=== PATIENT | male | born 1965 | race Caucasian/White ===

== ENCOUNTER 2018-11-22 07:30 | Day surgery (SDC) | payer OTHER ==
[2018-10-22 10:51] VITALS: BMI 33.6
[2018-11-22] MEDS ORDERED: ONDANSETRON 4 MG/2 ML VIAL IVPUSH PRN (09:54)
[2018-11-22] MEDS ORDERED: oxyCODONE HCL 5 MG TABLET PO PRN (09:54)
[2018-11-22] MEDS ORDERED: PROMETHAZINE HCL 25 MG/1 ML VIAL IVPB PRN (09:54)
[2018-11-22] MEDS ORDERED: MIDAZOLAM HCL 2 MG/2 ML SINGLE DOSE VIAL ONE ×2 (09:57)
[2018-11-22] MEDS ORDERED: LACTATED RINGERS SOLUTION 1,000 ML IV SCH (10:00)
[2018-11-22] MEDS ORDERED: PROPOFOL 20 ML ONE (10:02)
--- NOTE | 2018-11-22 10:57 | OP ---
Operative Note - Note: Operative Date: 11/22/18 Pre-Operative Diagnosis: urethral stricture Operation: cystoscopy and laser urethrotomy Findings: high grade bulbourethral stricture Post-Operative Diagnosis: Same as Pre-op Surgeon: Rogelio Saldana Anesthesia: General Drains & Tubes with Location: 20 fr silastic catheter
[2018-11-22 12:37] VITALS: TEMP 98.3
--- NOTE | 2018-11-22 13:08 | OP ---
DATE OF OPERATION: 11/22/2018 PREOPERATIVE DIAGNOSIS: Bulbous urethral stricture. POSTOPERATIVE DIAGNOSIS: Bulbous urethral stricture. PROCEDURE: Cystoscopy, laser urethrotomy, and urethral dilation. ATTENDING SURGEON: Royce Saldana MD ANESTHESIA: General. OPERATION: Went as follows, the patient was brought into the operating room and placed in a supine position on the operating room table. The patient was given anesthesia and preoperative antibiotics. He was then placed in the dorsal lithotomy position and prepped and draped in the usual sterile manner. Cystoscopy was performed in a pinpoint opening with a bulbous urethra was noted. With mild difficulty, a wire was placed through this opening into the bladder. At this point, a holmium laser was utilized, and under direct cystoscopic visualization, incision was made at the 12 o'clock position. Care was taken to avoid incision into muscle tissue. When adequate relaxation had been obtained, the urethra was then dilated to 20-Peruvian. Dilators were placed over the wire in order to avoid a false passage of further injury into this area. Once this was accomplished, cystoscopy was then performed, and the opened bulbous urethra with maintenance of the muscle tissue within the external urinary sphincter was noted. The bladder was examined. There was no evidence of stones or neoplasm. One to 2+ bladder trabeculation was noted. A 2 to 3+ obstructive prostate was noted. At this time, the patient was left with a silastic catheter to straight drainage measuring 20-Peruvian in diameter. Patient will maintain this catheter for 1 week. ROYCE KRISHNA M.D. /[id number]
[2018-11-22 13:28] VITALS: BP 168/81; PULSE 81
== END 2018-11-22 13:42 | disposition home or self-care (01) ==
LOC: JASU-SURG 07:30
PROVIDERS: ATTEND Urology
PROC: 0T7D8ZZ Dilation of Urethra, Via Natural or Artificial Opening Endoscopic (ICD-10-PCS; principal; 2018-11-22 09:00)
DX: N35.812 Other bulbous urethral stricture, male (principal)
CPT/HCPCS: 82962; 94760

== ENCOUNTER 2020-09-03 04:35 | Day surgery (SDC) | payer OTHER ==
--- OUTSIDE RECORDS SUMMARY | 2020-08-24 16:00 | XMS ---
:1965 Author Organization [facility] Support Name Relationship Address Phone ALYCIA BARBOSA [address] [place] [address] Re-disclosure Warning The records that you are about to access may contain information from federally- assisted alcohol or drug abuse programs. If such information is present, then the following federally mandated warning applies: This information has been disclosed to you from records protected by federal confidentiality rules (42 CFR part 2). The federal rules prohibit you from making any further disclosure of this information unless further disclosure is expressly permitted by the written consent of the person to whom it pertains or as otherwise permitted by 42 CFR part 2. A general authorization for the release of medical or other information is NOT sufficient for this purpose. The Federal rules restrict any use of the information to criminally investigate or prosecute any alcohol or drug abuse patient.The records that you are about to access may contain highly sensitive health information, the redisclosure of which is protected by Article 27-F of the [facility] Public Health law. If you continue you may haveaccess to information: Regarding HIV / AIDS; Provided by facilities licensed or operated by the [facility] Office of Mental Health; or Provided by the [facility] Office for People With Developmental Disabilities. If such information is present, then the following [facility] mandated warning applies: This information has been disclosed to you from confidential records which are protected by state law. State law prohibits you from making any further disclosure of this information without the specific written consent of the person to whom it pertains, or as otherwise permitted by law. Any unauthorized further disclosure in violation of state law may result in a fine or longterm sentence or both. A general authorization for the release of medical or other information is NOT sufficient authorization for further disclosure. Results ID Date Data Source [id number] 04/07/2020 12:00:00 AM EDT [facility] Name Value Range Interpretation Code Description Data Minerva rce(s) Supporting Document(s ) nCoV [facility] RNA XXX SANTOS+probe- Imp This lab was ordered by [facility] and reported by [employer] ID Date Data Source [id number] 03/31/2020 12:00:00 AM EDT [facility] Name Value Range Interpretation Code Description Data Minerva rce(s) Supporting Document(s ) nCoV [facility] RNA XXX SANTSO+probe- Imp This lab was ordered by [facility] and reported by [employer] ID Date Data Source [id number] 03/18/2020 12:00:00 AM EDT [facility] Name Value Range Interpretation Code Description Data Minerva rce(s) Supporting Document(s ) nCoV [facility] RNA XXX SANTOS+probe- Imp This lab was ordered by [facility] [employer] and reported by [employer] ID Date Data Source [id number] 03/11/2020 12:00:00 AM EDT [facility] Name Value Range Interpretation Code Description Data Minerva rce(s) Supporting Document(s ) nCoV [facility] RNA XXX SANTOS+probe- Imp This lab was ordered by [facility] [employer] and reported by [employer] ID Date Data Source [id number] 03/05/2020 12:00:00 AM EDT [facility] Name Value Range Interpretation Code Description Data Minerva rce(s) Supporting Document(s ) nCoV [facility] RNA XXX SANTOS+probe- Imp This lab was ordered by [facility] and reported by [employer] Procedure
[2020-08-31 16:08] VITALS: BMI 32.5
--- OUTSIDE RECORDS SUMMARY | 2020-09-03 04:39 | XMS ---
:1965 [facility] Support Name Relationship Address Phone JUHI, LIBERTY LINES Unavailable [address] [phone] [place] [address] JUHI Unavailable [address] [place] [address] MIRTA LAZAR BROTHER [address] [place] [address] ALYCIA BARBOSA [address] [phone] [place] [address] Re-disclosure Warning The records that you are [...] is protected by Article 27-F of the [facility] Public Health law. If you continue you may haveaccess to information: Regarding HIV / AIDS; Provided by facilities licensed or operated by the [facility] Office of Mental Health; or Provided by the [facility] Office for People With Developmental Disabilities. If such information is present, then the following [facility] mandated warning applies: This information has been [...] law may result in a fine or senior living sentence or both. A general authorization for the release of medical or other information is NOT sufficient authorization for further disclosure. Insurance Providers Payer name Policy type Policy ID Covered Covered constitution party's Policy P blayne / Coverage constitution party ID relationship to Lua Inf ormation type lua [employer] [id number] SP [id number] 01 HEALTHCARE HMO 1 Results ID Date Data Source [id number] 08/29/2020 04:10:00 PM EDT [facility] Name Value Range Interpretation Description Data Sup porting Code Source(s) Document(s ) SARS [facility] coronavirus 2 RNA This lab was ordered by [facility] and reported by [facility]. ID Date Data Source [id number] 04/07/2020 12:00:00 AM EDT [facility] Name Value Range Interpretation Code Description Data Minerva rce(s) Supporting Document(s ) nCoV [facility] RNA XXX SANTOS+probe- Imp This lab was ordered by [facility] [employer] and reported by [employer] ID Date Data Source [id number] 03/31/2020 12:00:00 AM EDT [facility] Name Value Range Interpretation Code Description Data Minerva rce(s) Supporting Document(s ) nCoV [facility] RNA XXX SANTOS+probe- Imp This lab was ordered by [facility] [employer] and reported by [employer] ID Date Data Source [id number] 03/18/2020 12:00:00 AM EDT [facility] Name Value Range Interpretation Code Description Data Minerva rce(s) Supporting Document(s ) nCoV [facility] RNA XXX SANTOS+probe- Imp This lab was ordered by [facility] [employer] and reported by [employer] ID Date Data Source [id number] 03/11/2020 12:00:00 AM EDT [facility] Name Value Range Interpretation Code Description Data Minerva rce(s) Supporting Document(s ) nCoV [facility] RNA XXX SANTOS+probe- Imp This lab was ordered by [facility] [employer] and reported by [employer] ID Date Data Source [id number] 03/05/2020 12:00:00 AM EDT [facility] Name Value Range Interpretation Code Description Data [facility]) Supporting Document(s ) 2019-nCoV [facility] RNA XXX SANTOS+probe- Imp This lab was ordered by [facility] and reported by [employer] Procedure
[2020-09-03 10:39] VITALS: TEMP 98
[2020-09-03] MEDS ORDERED: MIDAZOLAM HCL 2 MG/2 ML SINGLE DOSE VIAL ONE ×2 (13:53→14:41)
[2020-09-03 16:05] VITALS: BP 167/78; PULSE 66
--- NOTE | 2020-09-03 16:06 | OP ---
Operative Note - Note: Operative Date: 09/03/20 Pre-Operative Diagnosis: Right renal stone Operation: Right ESWL Findings: 6 mm mid pole Right renal stone Post-Operative Diagnosis: Same as Pre-op Surgeon: Rogelio Saldana Anesthesia: Regional Operative Report Dictated: Yes
--- NOTE | 2020-09-03 19:25 | OP ---
DATE OF OPERATION: 09/03/2020 PREOPERATIVE DIAGNOSIS: Right renal stone. POSTOPERATIVE DIAGNOSIS: Right renal stone. PROCEDURE: Right extracorporeal shockwave lithotripsy. ATTENDING: Royce Saldana M.D. ANESTHESIA: Fractional. DESCRIPTION OF PROCEDURE: Patient was brought in the operating room, placed in a supine position on the operating room table. Ultrasonography and fluoroscopy were performed. A 6-mm right mid pole stone was identified. At this point, anesthesia and preoperative antibiotics were then administered. Shockwave lithotripsy was then started. 2500 impulses at 17 joules of power were administered to the right mid pole stone with excellent fragmentation noted under realtime ultrasonography and fluoroscopy. No complications were noted. The patient tolerated the procedure very well. ROYCE KRISHNA M.D. /[id number]
== END 2020-09-03 16:15 | disposition home or self-care (01) ==
LOC: JASU-SURG 04:35
PROVIDERS: ATTEND Urology
PROC: 0TF3XZZ Fragmentation in Right Kidney Pelvis, External Approach (ICD-10-PCS; principal; 2020-09-03 13:30)
DX: N20.0 Calculus of kidney (principal); I10 Essential (primary) hypertension; E11.9 Type 2 diabetes mellitus without complications; Z79.4 Long term (current) use of insulin
CPT/HCPCS: 82962

== ENCOUNTER 2021-08-19 19:18 | Emergency (ER) | payer OTHER ==
[2021-08-19 19:42] VITALS: BP 135/66; PULSE 76; TEMP 98.2; BMI 33.2
[2021-08-19] MEDS ORDERED: KETOROLAC TROMETHAMINE 15 MG/ML VIAL IM ONE (21:41)
[2021-08-19] MEDS ORDERED: LIDOCAINE 5% TOPICAL PATCH TP ONE (21:41)
[2021-08-19] MEDS ORDERED: LIDOCAINE PATCH REMOVAL MC SCH (22:00)
[2021-08-19] MEDS ORDERED: KETOROLAC TROMETHAMINE 15 MG/ML VIAL ONE (22:15)
[2021-08-19] MEDS ORDERED: LIDOCAINE 5% TOPICAL PATCH ONE (22:15)
== END 2021-08-19 22:30 | disposition home or self-care (01) ==
LOC: JER 19:18 → JERFT 19:18
PROC: 3E0233Z Introduction of Anti-inflammatory into Muscle, Percutaneous Approach (ICD-10-PCS; principal; 2021-08-19)
DX: M54.50 Low back pain, unspecified (principal)
CPT/HCPCS: 99284-25

== ENCOUNTER 2022-01-29 10:42 | Emergency (ER) | payer OTHER ==
[2022-01-29 10:48] VITALS: BP 197/77; PULSE 89; TEMP 98.3; BMI 32.6
[2022-01-29] MEDS ORDERED: DALBAVANCIN HCL 1,500 MG in DEXTROSE 5%-WATER - 500 ML IVPB ONE (11:54)
== END 2022-01-29 14:26 | disposition home or self-care (01) ==
LOC: JER 10:42 → JERFT 10:42
DX: L03.031 Cellulitis of right toe (principal)
CPT/HCPCS: 99284-25; G0463-25; J0875

== ENCOUNTER 2022-02-06 14:21 | Emergency (ER) | payer OTHER ==
[2022-02-06 14:26] VITALS: BMI 33.2
[2022-02-06] MEDS ORDERED: DALBAVANCIN HCL 1,500 MG in DEXTROSE 5%-WATER - 500 ML IVPB ONE (15:39)
[2022-02-06] MEDS ORDERED: DALBAVANCIN HCL 500 MG VIAL (RESTRICTED TO ID ONLY) IVPB ONE (15:52)
[2022-02-06 16:29] LABS: BASO % 0.9 % (0-2.0); EOS % 0.6 % (0-4.5); HEMATOCRIT 38.6 % (35.4-49); HEMOGLOBIN 13.6 GM/dL (11.7-16.9); MCH 29.8 pg (25.7-33.7); MCHC 35.2 g/dl (32.0-35.9); MEAN CELL VOLUME 84.7 fl (80-96); MEAN PLT VOLUME 7.4 fl (7.5-11.1); MONO % 6.7 % (3.8-10.2); NEUT % 64.8 % (42.8-82.8); PLATELET COUNT 257 10^3/uL (134-434); RBC 4.56 M/mm3 (4.00-5.60); WHITE BLOOD COUNT 7.1 K/mm3 (4.0-10.0)
[2022-02-06 16:45] LABS: SODIUM 135 mmol/L (136-145)
[2022-02-06 16:47] LABS: BLOOD UREA NITROGEN 24.2 mg/dL (7-18); CALCIUM 9.5 mg/dL (8.5-10.1); CO2 26 mmol/L (21-32); GLUCOSE,RANDOM 318 mg/dL (74-106)
[2022-02-06 16:50] LABS: CREATININE 1.2 mg/dL (0.55-1.3); SGOT/AST 52 U/L (15-37); SGPT/ALT 89 U/L (13-61)
[2022-02-06 16:52] LABS: BILIRUBIN,TOTAL 0.4 mg/dL (0.2-1); TOT PROT 7.2 g/dl (6.4-8.2)
[2022-02-06 16:53] LABS: ALK PHOS 125 U/L (45-117)
[2022-02-06 17:11] LABS: ANION GAP 8 MMOL/L (8-16); CHLORIDE 101 mmol/L (98-107)
[2022-02-06 18:08] LABS: ERYTHROCYTE SEDIMENTATION RATE 13 mm/hr (0-20)
[2022-02-06 19:02] VITALS: BP 140/75; PULSE 86; TEMP 99
== END 2022-02-06 19:02 | disposition home or self-care (01) ==
LOC: JER 14:21
DX: L03.031 Cellulitis of right toe (principal)
CPT/HCPCS: 36415; 80053; 85025; 85651; 86140; 99284-25; G0463-25; J0875

== ENCOUNTER 2022-02-27 04:10 | Day surgery (SDC) | payer OTHER ==
[2022-02-24 15:10] VITALS: BMI 33.2
[2022-02-27] MEDS ORDERED: LIDOCAINE HCL 1%, 10 MG/ML (50 mL VIAL) SQ ONE (07:43)
[2022-02-27 08:20] VITALS: BP 147/67; PULSE 80; TEMP 98.8
== END 2022-02-27 09:35 | disposition home or self-care (01) ==
LOC: JASU-SURG 04:10
PROVIDERS: ATTEND Podiatrist Foot Surgery
PROC: 0QBQ3ZX Excision of Right Toe Phalanx, Percutaneous Approach, Diagnostic (ICD-10-PCS; principal; 2022-02-27 07:30)
DX: M86.9 Osteomyelitis, unspecified (principal)
CPT/HCPCS: 36415; 73630-TC-RT-FY; 82962; 86140; 87070; 87075; 87205

== ENCOUNTER 2022-10-06 05:28 | Day surgery (SDC) | payer OTHER ==
[2022-10-03 16:10] VITALS: BMI 32.5
[2022-10-06 09:37] VITALS: TEMP 98.8
[2022-10-06 10:15] VITALS: BP 158/51; PULSE 76; RESP 21
== END 2022-10-06 10:41 | disposition home or self-care (01) ==
LOC: JASU-ENDO 05:28
PROVIDERS: ATTEND Internal Medicine Gastroenterology
PROC: 0DBL8ZX Excision of Transverse Colon, Via Natural or Artificial Opening Endoscopic, Diagnostic (ICD-10-PCS; 2022-10-06)
PROC: 0DBP8ZX Excision of Rectum, Via Natural or Artificial Opening Endoscopic, Diagnostic (ICD-10-PCS; principal; 2022-10-06 09:00)
DX: Z12.11 Encounter for screening for malignant neoplasm of colon (principal); D12.3 Benign neoplasm of transverse colon; K62.1 Rectal polyp; K64.8 Other hemorrhoids; Z83.71 Family history of colonic polyps
CPT/HCPCS: 82962; 88305-TC

== ENCOUNTER 2023-01-19 04:17 | Day surgery (SDC) | payer OTHER ==
[2023-01-14 16:49] VITALS: BMI 32.5
[2023-01-19 12:51] VITALS: RESP 18
[2023-01-19] MEDS ORDERED: MIDAZOLAM HCL 2 MG/2 ML SINGLE DOSE VIAL ONE (16:37)
[2023-01-19] MEDS ORDERED: LABETALOL HCL 20 MG/4 ML VIAL ONE (16:56)
[2023-01-19 18:24] VITALS: BP 151/67; PULSE 69; TEMP 98
== END 2023-01-19 18:15 | disposition home or self-care (01) ==
LOC: JASU-SURG 04:17
PROVIDERS: ATTEND Urology
PROC: 0TF3XZZ Fragmentation in Right Kidney Pelvis, External Approach (ICD-10-PCS; principal; 2023-01-19 14:00)
DX: N20.0 Calculus of kidney (principal)
CPT/HCPCS: 82962

== ENCOUNTER 2023-11-23 04:31 | Day surgery (SDC) | payer OTHER ==
[2023-11-18 16:37] VITALS: BMI 32.5
[2023-11-23] MEDS ORDERED: MIDAZOLAM HCL 2 MG/2 ML SINGLE DOSE VIAL ONE (13:22)
[2023-11-23 16:16] VITALS: RESP 18
[2023-11-23 16:20] VITALS: BP 164/58; PULSE 61; TEMP 97.9
== END 2023-11-23 15:07 | disposition home or self-care (01) ==
LOC: JASU-SURG 04:31
PROVIDERS: ATTEND Urology
PROC: 0TF4XZZ Fragmentation in Left Kidney Pelvis, External Approach (ICD-10-PCS; principal; 2023-11-23 13:00)
DX: N20.0 Calculus of kidney (principal)
CPT/HCPCS: 82962

== ENCOUNTER 2024-06-16 18:45 | Inpatient (IN) | payer OTHER ==
[2024-06-16 21:51] LABS: BASO % 1.2 % (0-2.0); EOS % 1.7 % (0-4.5); HEMATOCRIT 33.7 % (35.4-49); HEMOGLOBIN 11.5 GM/dL (11.7-16.9); LYMPH % 26.3 % (8-40); MCH 29.7 pg (25.7-33.7); MCHC 34.1 g/dl (32.0-35.9); MEAN CELL VOLUME 87.1 fl (80-96); MEAN PLT VOLUME 6.6 fl (7.5-11.1); MONO % 7.6 % (3.8-10.2); NEUT % 63.2 % (42.8-82.8); PLATELET COUNT 238 10^3/uL (134-434); RBC 3.87 M/mm3 (4.00-5.60); WHITE BLOOD COUNT 7.2 K/mm3 (4.0-10.0)
[2024-06-16 21:58] LABS: INR 1.13 (0.83-1.09); PROTHROMBIN TIME (PATIENT) 12.9 SEC (9.7-13.0)
[2024-06-16 22:01] LABS: ACTIVATED PTT 32.1 SECONDS (25.2-36.5)
[2024-06-16 22:06] LABS: POTASSIUM 4.3 mmol/L (3.5-5.1)
[2024-06-16 22:08] LABS: ALBUMIN 3.4 g/dl (3.4-5.0)
[2024-06-16 22:09] LABS: BLOOD UREA NITROGEN 25.5 mg/dL (7-18); CALCIUM 8.7 mg/dL (8.5-10.1); MAGNESIUM 2.4 mg/dL (1.8-2.4)
[2024-06-16 22:13] LABS: CREATININE 1.3 mg/dL (0.55-1.3)
[2024-06-16 22:14] LABS: BILIRUBIN,TOTAL 0.3 mg/dL (0.2-1); TOT PROT 6.6 g/dl (6.4-8.2)
[2024-06-17] MEDS: hydrALAZINE HCL 50 MG TABLET (FP) PO SCH (06:47)
[2024-06-17] MEDS: INSULIN ASPART SLIDING SCALE (NOVOLOG) 1 VIAL SQ SCH (08:18)
[2024-06-17 08:20] LABS: BASO % 0.4 % (0-2.0); EOS % 1.7 % (0-4.5); HEMATOCRIT 35.1 % (35.4-49); HEMOGLOBIN 12.2 GM/dL (11.7-16.9); LYMPH % 27.7 % (8-40); MCH 30.2 pg (25.7-33.7); MCHC 34.8 g/dl (32.0-35.9); MEAN CELL VOLUME 86.9 fl (80-96); MEAN PLT VOLUME 6.8 fl (7.5-11.1); MONO % 7.5 % (3.8-10.2); NEUT % 62.7 % (42.8-82.8); PLATELET COUNT 228 10^3/uL (134-434); RBC 4.04 M/mm3 (4.00-5.60); WHITE BLOOD COUNT 6.8 K/mm3 (4.0-10.0)
[2024-06-17 08:32] LABS: POTASSIUM 4.3 mmol/L (3.5-5.1)
[2024-06-17 08:35] LABS: ALBUMIN 3.5 g/dl (3.4-5.0); BLOOD UREA NITROGEN 21.8 mg/dL (7-18); CALCIUM 8.9 mg/dL (8.5-10.1)
[2024-06-17 08:38] LABS: CREATININE 1.1 mg/dL (0.55-1.3)
[2024-06-17 08:39] LABS: BILIRUBIN,TOTAL 0.4 mg/dL (0.2-1)
[2024-06-17 08:40] LABS: TOT PROT 6.7 g/dl (6.4-8.2)
[2024-06-17] MEDS ORDERED: HYDROCHLOROTHIAZIDE 12.5 MG CAPSULE (FP) PO SCH (10:00)
[2024-06-17] MEDS: HEPARIN NA (PORCINE) 5,000 UNITS/ML 1ML VIAL SQ SCH (10:14)
[2024-06-17] MEDS: ASPIRIN COATED 81 MG TABLET.EC PO SCH (10:14)
[2024-06-17] MEDS: VALSARTAN 160 MG TABLET PO SCH (10:14)
[2024-06-17] MEDS: FUROSEMIDE 40 MG/4 ML INJECTABLE VIAL IVPUSH ONE (11:19)
[2024-06-17] MEDS: FUROSEMIDE 40 MG/4 ML INJECTABLE VIAL IVPUSH SCH (15:11)
[2024-06-17] MEDS: TAMSULOSIN HCL 0.4 MG CAP PO SCH (15:55)
[2024-06-17] MEDS: PATIENT'S OWN MEDICATION (NON-FORMULARY) (Sitagliptin Phos/Metformin Hcl [Janumet Xr 50-1, PO SCH (16:56)
[2024-06-17] MEDS: MOMETASONE FUROATE 220 MCG/IH INHALER IH SCH (17:39)
[2024-06-17] MEDS: ALBUTEROL SO4 2.5/IPRATROPIUM 0.5 INH SOL 3 ML VIAL.NEB. NEB SCH (20:10)
[2024-06-17] MEDS ORDERED: NIFEdipine E.R. 30 MG TABLET PO SCH (22:00)
[2024-06-17] MEDS: ATORVASTATIN CA 20 MG TABLET (FP) PO SCH (22:03)
[2024-06-18] MEDS: sitaGLIPtin PHOSPHATE 50 MG TABLET PO SCH (06:07)
[2024-06-18] MEDS: FUROSEMIDE 20 MG TABLET (FP) PO SCH (09:46)
[2024-06-18] MEDS: guaiFENesin 200 MG/10 ML 10 ML UNIT-DOSE CUPS PO PRN (23:49)
[2024-06-19 13:41] LABS: POTASSIUM 4.4 mmol/L (3.5-5.1)
[2024-06-19 13:42] LABS: CALCIUM 8.9 mg/dL (8.5-10.1)
[2024-06-19 13:43] LABS: BLOOD UREA NITROGEN 25.3 mg/dL (7-18)
[2024-06-19 13:46] LABS: CREATININE 1.4 mg/dL (0.55-1.3)
[2024-06-19 16:08] VITALS: BMI 31.4
[2024-06-19 19:21] LABS: URINE APPEARANCE CLEAR; URINE BILIRUBIN NEGATIVE (NEGATIVE); URINE COLOR YELLOW; URINE GLUCOSE (UA) NEGATIVE (NEGATIVE); URINE KETONE NEGATIVE (NEGATIVE); URINE LEUK ESTERASE NEGATIVE (NEGATIVE); URINE NITRITE NEGATIVE (NEGATIVE); URINE PROTEIN NEGATIVE (NEGATIVE); URINE UROBILINOGEN 0.2 mg/dL (0.2-1.0)
[2024-06-20 07:25] LABS: POTASSIUM 4.5 mmol/L (3.5-5.1)
[2024-06-20 07:27] LABS: BLOOD UREA NITROGEN 27.6 mg/dL (7-18); CALCIUM 8.8 mg/dL (8.5-10.1)
[2024-06-20 07:31] LABS: CREATININE 1.4 mg/dL (0.55-1.3)
[2024-06-20 12:58] VITALS: RESP 18
[2024-06-20 17:55] VITALS: BP 159/67; PULSE 71; TEMP 98.7
== END 2024-06-20 20:30 | disposition home or self-care (01) | DRG 202 ==
LOC: JER 18:45 → JERBED 06-17 00:28 → J4W 06-17 02:57
PROVIDERS: ADMIT Internal Medicine; ATTEND Family Medicine
DX: J20.9 Acute bronchitis, unspecified (principal); N17.9 Acute kidney failure, unspecified; Z79.4 Long term (current) use of insulin; E78.5 Hyperlipidemia, unspecified; E11.40 Type 2 diabetes mellitus with diabetic neuropathy, unspecified; D64.9 Anemia, unspecified; G47.33 Obstructive sleep apnea (adult) (pediatric); Z86.16 Personal history of COVID-19; E11.319 Type 2 diabetes mellitus with unspecified diabetic retinopathy without macular edema; I50.9 Heart failure, unspecified; E66.01 Morbid (severe) obesity due to excess calories; Z68.32 Body mass index [BMI] 32.0-32.9, adult; I11.0 Hypertensive heart disease with heart failure
CPT/HCPCS: 36415; 71046-TC-FY; 71275-TC; 76775-TC; 76856-TC; 80048; 80053; 80061; 81003; 82043; 82550; 82553; 82570; 82607; 82728; 82962; 83540; 83550; 83735; 83880; 84443; 84484; 85025; 85379; 85610; 85730; 93005; 93010; 93306-TC; 93970-TC; 94640; 99285-25; J1644; Q9967

== ENCOUNTER 2025-08-18 17:05 | Inpatient (IN) | payer OTHER ==
[2025-08-18 18:53] LABS: INR 1.37 (0.83-1.09); PROTHROMBIN TIME (PATIENT) 14.9 SEC (9.7-13.0)
[2025-08-18 18:55] LABS: ACTIVATED PTT 31.5 SECONDS (25.2-36.5)
[2025-08-18 19:07] LABS: ABSOLUTE IMMATURE GRANULOCYTES 0.03 x10^3/uL (0.0-0.031); BASOPHILS # 0.04 x10^3/uL (0.01-0.08); EOSINOPHIL % 0.3 % (0.8-7.0); EOSINOPHILS # 0.03 x10^3/uL (0.04-0.54); MCHC 33.8 g/dl (32.3-36.5); MEAN CELL VOLUME 91.4 fl (79.0-92.2); MEAN PLT VOLUME 8.8 fl (9.4-12.4); MONOCYTE # 1.03 x10^3/uL (0.30-0.82); MONOCYTE % 11.0 % (5.3-12.2); RDW 12.6 % (12.2-16.1)
[2025-08-18 19:34] LABS: TOT PROT 7.0 g/dl (6.4-8.2)
[2025-08-18 19:35] LABS: CO2 26.0 mmol/L (21-32)
[2025-08-18 19:37] LABS: ALK PHOS 101.0 U/L (40-150)
[2025-08-18 19:39] LABS: SGPT/ALT 14.0 U/L (0-55)
[2025-08-18 19:40] LABS: CREATININE 2.42 mg/dL (0.55-1.3); SGOT/AST 25.0 U/L (5-34)
[2025-08-18 19:54] LABS: GLUCOSE,RANDOM 80.0 mg/dL (74-106)
[2025-08-18 19:59] LABS: HCV DIAGNOSTIC IN-HOUSE W/RFLX NON-REACTIVE (NONREACTIVE); HIV INTERPRETATION NEGATIVE (NEGATIVE)
[2025-08-18 20:17] LABS: ERYTHROCYTE SEDIMENTATION RATE 45 mm/hr (0-20)
[2025-08-18] MEDS ORDERED: CEFAZOLIN 1 GM/50 ML IVPB ONE (20:24)
[2025-08-18] MEDS: CEFAZOLIN 1 GM in DEXTROSE 5%-WATER - 50 ML IVPB ONE (20:25)
[2025-08-18] MEDS ORDERED: ACETAMINOPHEN INJECTION 0 ML ONE (20:42)
[2025-08-18] MEDS: ACETAMINOPHEN 325 MG TABLET (FP) PO ONE (20:50)
[2025-08-18] MEDS ORDERED: ACETAMINOPHEN 325 MG TABLET (FP) ONE (20:50)
[2025-08-18] MEDS ORDERED: VANCOMYCIN 1 GM PREMIX (F) 1 GM/200 ML BAG ONE (20:52)
[2025-08-18] MEDS: VANCOMYCIN 1,000 MG in DEXTROSE 5%-WATER - 250 ML IVPB ONE (20:53)
[2025-08-18] MEDS: SODIUM CHLORIDE 1,000 ML IV SCH (21:42)
[2025-08-18] MEDS ORDERED: HEPARIN NA (PORCINE) 5,000 UNITS/ML 1ML VIAL SQ SCH (22:00)
[2025-08-18] MEDS: INSULIN ASPART SLIDING SCALE (NOVOLOG) 1 VIAL SQ SCH (23:18)
[2025-08-18] MEDS: METOPROLOL TARTRATE 50 MG TABLET (FP) PO SCH (23:18)
[2025-08-18] MEDS: hydrALAZINE HCL 50 MG TABLET (FP) PO SCH (23:18)
[2025-08-18] MEDS ORDERED: ACETAMINOPHEN 1000 MG/100 ML BAG IVPB PRN (23:33)
[2025-08-18 23:59] LABS: URINE APPEARANCE CLEAR; URINE BILIRUBIN NEGATIVE (NEGATIVE); URINE COLOR YELLOW; URINE GLUCOSE (UA) 3+ (NEGATIVE); URINE KETONE TRACE (NEGATIVE); URINE LEUK ESTERASE NEGATIVE (NEGATIVE); URINE NITRITE NEGATIVE (NEGATIVE); URINE PROTEIN NEGATIVE (NEGATIVE); URINE UROBILINOGEN 0.2 mg/dL (0.2-1.0)
[2025-08-19 01:12] VITALS: BMI 32.1
[2025-08-19] MEDS: PIPERACILLIN/TAZOB 3.375 GM 3.375 GM in DEXTROSE 5%-WATER - 50 ML IVPB SCH (02:20)
[2025-08-19] MEDS ORDERED: PIPERACILLIN/TAZOB 3.375 GM 3.375 GM in DEXTROSE 5%-WATER - 50 ML IVPB SCH (03:00)
[2025-08-19 07:51] LABS: ABSOLUTE IMMATURE GRANULOCYTES 0.03 x10^3/uL (0.0-0.031); BASOPHILS # 0.04 x10^3/uL (0.01-0.08); EOSINOPHIL % 0.5 % (0.8-7.0); EOSINOPHILS # 0.05 x10^3/uL (0.04-0.54); MCHC 32.5 g/dl (32.3-36.5); MEAN CELL VOLUME 91.5 fl (79.0-92.2); MEAN PLT VOLUME 9.1 fl (9.4-12.4); MONOCYTE # 0.94 x10^3/uL (0.30-0.82); MONOCYTE % 9.7 % (5.3-12.2); RDW 12.5 % (12.2-16.1)
[2025-08-19 08:35] LABS: GLUCOSE,RANDOM 164.0 mg/dL (74-106)
[2025-08-19 08:36] LABS: TOT PROT 6.6 g/dl (6.4-8.2)
[2025-08-19 08:37] LABS: CO2 23.0 mmol/L (21-32)
[2025-08-19 08:38] LABS: ALK PHOS 101.0 U/L (40-150)
[2025-08-19] MEDS: TAMSULOSIN HCL 0.4 MG CAP PO SCH (08:38)
[2025-08-19 08:41] LABS: CREATININE 1.86 mg/dL (0.55-1.3); SGOT/AST 22.0 U/L (5-34); SGPT/ALT 12.0 U/L (0-55)
[2025-08-19] MEDS: TORSEMIDE 20 MG TABLET (FP) PO SCH (09:35)
[2025-08-19] MEDS: NIFEdipine E.R. 30 MG TABLET PO SCH (09:36)
[2025-08-19] MEDS ORDERED: VANCOMYCIN 1 GM PREMIX (F) 1 GM/200 ML BAG IVPB SCH ×2 (10:00→20:00)
[2025-08-19] MEDS ORDERED: TORSEMIDE 20 MG TABLET (FP) PO SCH (10:00)
[2025-08-19] MEDS: COLLAGENASE CLOSTRIDIUM HIST. 30 GRAMS TUBE TP SCH (17:38)
[2025-08-19] MEDS: VANCOMYCIN/WATER FOR INJ (PEG) 1,000 MG/200 ML BAG IVPB SCH (21:57)
[2025-08-19] MEDS: INSULIN GLARGINE (LANTUS) 100 UNITS/ML UNITS SQ SCH (21:58)
[2025-08-20 08:55] LABS: ABSOLUTE IMMATURE GRANULOCYTES 0.03 x10^3/uL (0.0-0.031); BASOPHILS # 0.05 x10^3/uL (0.01-0.08); EOSINOPHIL % 0.8 % (0.8-7.0); EOSINOPHILS # 0.08 x10^3/uL (0.04-0.54); MCHC 33.1 g/dl (32.3-36.5); MEAN CELL VOLUME 91.0 fl (79.0-92.2); MEAN PLT VOLUME 9.0 fl (9.4-12.4); MONOCYTE # 0.92 x10^3/uL (0.30-0.82); MONOCYTE % 9.0 % (5.3-12.2); RDW 12.3 % (12.2-16.1)
[2025-08-20 09:24] LABS: GLUCOSE,RANDOM 150.0 mg/dL (74-106); TOT PROT 7.2 g/dl (6.4-8.2)
[2025-08-20 09:25] LABS: CO2 25.0 mmol/L (21-32)
[2025-08-20 09:27] LABS: ALK PHOS 103.0 U/L (40-150)
[2025-08-20 09:29] LABS: SGPT/ALT 16.0 U/L (0-55)
[2025-08-20 09:30] LABS: CREATININE 2.11 mg/dL (0.55-1.3); SGOT/AST 24.0 U/L (5-34)
[2025-08-21] MEDS: PIPERACILLIN/TAZOB 2.25 GM 2.25 GM in DEXTROSE 5%-WATER - 50 ML IVPB SCH (01:05)
[2025-08-21] MEDS: VANCOMYCIN/WATER FOR INJ (PEG) 1,000 MG/200 ML BAG IVPB SCH (21:14)
[2025-08-21] MEDS: INSULIN GLARGINE (LANTUS) 100 UNITS/ML UNITS SQ SCH (21:28)
[2025-08-21] MEDS: INSULIN ASPART SLIDING SCALE (NOVOLOG) 1 VIAL SQ SCH (21:29)
[2025-08-22] MEDS: INSULIN GLARGINE (LANTUS) 100 UNITS/ML UNITS SQ SCH ×2 (06:40→21:35)
[2025-08-22] MEDS: INSULIN ASPART SLIDING SCALE (NOVOLOG) 1 VIAL SQ SCH (21:34)
[2025-08-23 03:20] VITALS: PULSE 71; RESP 18; TEMP 97.3
[2025-08-23] MEDS: INSULIN GLARGINE (LANTUS) 100 UNITS/ML UNITS SQ SCH (06:01)
[2025-08-23 12:56] LABS: ABSOLUTE IMMATURE GRANULOCYTES 0.03 x10^3/uL (0.0-0.031); BASOPHILS # 0.04 x10^3/uL (0.01-0.08); EOSINOPHIL % 1.7 % (0.8-7.0); EOSINOPHILS # 0.13 x10^3/uL (0.04-0.54); MCHC 33.5 g/dl (32.3-36.5); MEAN CELL VOLUME 89.2 fl (79.0-92.2); MEAN PLT VOLUME 8.7 fl (9.4-12.4); MONOCYTE # 0.52 x10^3/uL (0.30-0.82); MONOCYTE % 6.9 % (5.3-12.2); RDW 12.3 % (12.2-16.1)
[2025-08-23 13:23] LABS: GLUCOSE,RANDOM 253.0 mg/dL (74-106)
[2025-08-23 13:24] LABS: TOT PROT 7.5 g/dl (6.4-8.2)
[2025-08-23 13:25] LABS: CO2 27.0 mmol/L (21-32)
[2025-08-23 13:26] LABS: ALK PHOS 107.0 U/L (40-150)
[2025-08-23 13:29] LABS: CREATININE 1.57 mg/dL (0.55-1.3); SGOT/AST 30.0 U/L (5-34); SGPT/ALT 30.0 U/L (0-55)
[2025-08-23 14:27] VITALS: BP 164/56
== END 2025-08-23 17:44 | disposition home or self-care (01) | DRG 603 ==
LOC: JER 17:05 → JERBED 20:21 → OBSVTOIN 21:15 → J6S 23:08
PROVIDERS: ADMIT Family Medicine; ATTEND Family Medicine
DX: L03.116 Cellulitis of left lower limb (principal); E11.621 Type 2 diabetes mellitus with foot ulcer; L97.529 Non-pressure chronic ulcer of other part of left foot with unspecified severity; E11.65 Type 2 diabetes mellitus with hyperglycemia; E78.5 Hyperlipidemia, unspecified; I12.9 Hypertensive chronic kidney disease with stage 1 through stage 4 chronic kidney disease, or unspecified chronic kidney disease; N18.9 Chronic kidney disease, unspecified; E11.40 Type 2 diabetes mellitus with diabetic neuropathy, unspecified
CPT/HCPCS: 36415; 73630-TC-LT; 73718-TC-LT; 76775-TC; 80053; 81003; 82962; 83036; 83735; 84100; 85025; 85610; 85651; 85730; 86140; 86803; 86850; 86900; 86901; 87040; 87070; 87205; 87389; 93005; 93010; 93922; 93926-TC; 93971-TC-RT; 99285-25; G0378; G0480

== ENCOUNTER 2025-08-29 15:09 | Inpatient (IN) | payer OTHER ==
[2025-08-29 16:46] LABS: ABSOLUTE IMMATURE GRANULOCYTES 0.05 x10^3/uL (0.0-0.031); BASOPHILS # 0.06 x10^3/uL (0.01-0.08); EOSINOPHIL % 1.2 % (0.8-7.0); EOSINOPHILS # 0.10 x10^3/uL (0.04-0.54); MCHC 33.7 g/dl (32.3-36.5); MEAN CELL VOLUME 88.3 fl (79.0-92.2); MEAN PLT VOLUME 8.8 fl (9.4-12.4); MONOCYTE # 0.58 x10^3/uL (0.30-0.82); MONOCYTE % 6.9 % (5.3-12.2); RDW 12.1 % (12.2-16.1)
[2025-08-29 17:32] LABS: GLUCOSE,RANDOM 158.0 mg/dL (74-106); TOT PROT 7.8 g/dl (6.4-8.2)
[2025-08-29 17:33] LABS: CO2 28.0 mmol/L (21-32)
[2025-08-29 17:35] LABS: ALK PHOS 123.0 U/L (40-150)
[2025-08-29 17:38] LABS: CREATININE 1.86 mg/dL (0.55-1.3); SGOT/AST 30.0 U/L (5-34); SGPT/ALT 27.0 U/L (0-55)
[2025-08-29] MEDS ORDERED: SODIUM ZIRCONIUM CYCLOSILICATE (LOKELMA) 5 GM PACKET ONE (19:36)
[2025-08-29] MEDS: SODIUM ZIRCONIUM CYCLOSILICATE (LOKELMA) 5 GM PACKET PO ONE (19:43)
[2025-08-29] MEDS ORDERED: PIPERACILLIN/TAZOB 4.5 GM 4.5 GM/100 ML BAG IVPB ONE (20:51)
[2025-08-29] MEDS: PIPERACILLIN/TAZOB 4.5 GM 4.5 GM in DEXTROSE 5%-WATER 100 ML IVPB ONE (21:00)
[2025-08-29] MEDS: HEPARIN NA (PORCINE) 5,000 UNITS/ML 1ML VIAL SQ SCH (22:29)
[2025-08-29] MEDS: hydrALAZINE HCL 50 MG TABLET (FP) PO SCH (22:29)
[2025-08-29] MEDS: METOPROLOL TARTRATE 50 MG TABLET (FP) PO SCH (22:29)
[2025-08-30 00:09] VITALS: BMI 30.6
[2025-08-30] MEDS: PIPERACILLIN/TAZOB 3.375 GM 3.375 GM in DEXTROSE 5%-WATER - 50 ML IVPB SCH ×2 (03:46→16:13)
[2025-08-30] MEDS: INSULIN ASPART SLIDING SCALE (NOVOLOG) 1 VIAL SQ SCH (06:41)
[2025-08-30] MEDS: EMPAGLIFLOZIN (JARDIANCE) 25 MG TABLET PO SCH (06:41)
[2025-08-30 06:57] LABS: ABSOLUTE IMMATURE GRANULOCYTES 0.04 x10^3/uL (0.0-0.031); BASOPHILS # 0.05 x10^3/uL (0.01-0.08); EOSINOPHIL % 1.9 % (0.8-7.0); EOSINOPHILS # 0.14 x10^3/uL (0.04-0.54); MCHC 33.2 g/dl (32.3-36.5); MEAN CELL VOLUME 89.0 fl (79.0-92.2); MEAN PLT VOLUME 8.8 fl (9.4-12.4); MONOCYTE # 0.66 x10^3/uL (0.30-0.82); MONOCYTE % 8.9 % (5.3-12.2); RDW 12.1 % (12.2-16.1)
[2025-08-30] MEDS ORDERED: INSULIN GLARGINE (LANTUS) 100 UNITS/ML UNITS SQ SCH (07:00)
[2025-08-30 07:07] LABS: INR 1.31 (0.83-1.09); PROTHROMBIN TIME (PATIENT) 14.4 SEC (9.7-13.0)
[2025-08-30 07:10] LABS: ACTIVATED PTT 32.1 SECONDS (25.2-36.5)
[2025-08-30 07:24] LABS: GLUCOSE,RANDOM 125.0 mg/dL (74-106)
[2025-08-30 07:25] LABS: TOT PROT 7.4 g/dl (6.4-8.2)
[2025-08-30 07:26] LABS: CO2 29.0 mmol/L (21-32)
[2025-08-30 07:27] LABS: ALK PHOS 113.0 U/L (40-150)
[2025-08-30 07:30] LABS: CREATININE 1.96 mg/dL (0.55-1.3); SGOT/AST 21.0 U/L (5-34); SGPT/ALT 21.0 U/L (0-55)
[2025-08-30] MEDS: TAMSULOSIN HCL 0.4 MG CAP PO SCH (08:07)
[2025-08-30 08:53] LABS: ERYTHROCYTE SEDIMENTATION RATE 50 mm/hr (0-20)
[2025-08-30] MEDS: PANTOPRAZOLE 40 MG TABLET PO SCH (09:24)
[2025-08-30] MEDS: TORSEMIDE 20 MG TABLET (FP) PO SCH (09:24)
[2025-08-30] MEDS: NIFEdipine E.R. 30 MG TABLET PO SCH (09:24)
[2025-08-30] MEDS: PIPERACILLIN/TAZOB 2.25 GM 2.25 GM in DEXTROSE 5%-WATER - 50 ML IVPB SCH (17:42)
[2025-08-31] MEDS ORDERED: EMPAGLIFLOZIN (JARDIANCE) 25 MG TABLET PO SCH (10:00)
[2025-08-31] MEDS ORDERED: COLLAGENASE CLOSTRIDIUM HIST. 30 GRAMS TUBE TP SCH (11:53)
[2025-08-31] MEDS: COLLAGENASE CLOSTRIDIUM HIST. 30 GRAMS TUBE TP SCH ×2 (12:30→15:21)
[2025-08-31] MEDS: PATIENT'S OWN MEDICATION (NON-FORMULARY) (Insulin Pump/Infus. Set/Meter [Accu-Chek Combo S MC SCH (12:31)
[2025-08-31] MEDS: ONDANSETRON 4 MG/2 ML VIAL IVPUSH PRN (16:23)
[2025-09-01 09:41] LABS: ALK PHOS 109.0 U/L (40-150); CO2 24.0 mmol/L (21-32); GLUCOSE,RANDOM 173.0 mg/dL (74-106); TOT PROT 7.6 g/dl (6.4-8.2)
[2025-09-01 09:42] LABS: CREATININE 2.69 mg/dL (0.55-1.3); SGOT/AST 20.0 U/L (5-34); SGPT/ALT 15.0 U/L (0-55)
[2025-09-01] MEDS: SODIUM CHLORIDE 0.45% 1,000 ML IV SCH (13:45)
[2025-09-03 08:39] LABS: GLUCOSE,RANDOM 85.0 mg/dL (74-106); TOT PROT 6.9 g/dl (6.4-8.2)
[2025-09-03 08:40] LABS: CO2 26.0 mmol/L (21-32)
[2025-09-03 08:41] LABS: ALK PHOS 95.0 U/L (40-150)
[2025-09-03 08:44] LABS: SGOT/AST 23.0 U/L (5-34); SGPT/ALT 29.0 U/L (0-55)
[2025-09-03 08:45] LABS: CREATININE 1.82 mg/dL (0.55-1.3)
[2025-09-04] MEDS ORDERED: LIDOCAINE HCL 1%, 10 MG/ML (20ML VIAL) ONE (09:31)
[2025-09-04] MEDS ORDERED: BUPIVACAINE HCL/PF 0.5% (5MG/ML) 10 ML VIAL ONE (09:31)
[2025-09-04] MEDS ORDERED: VANCOMYCIN 1,000 MG VIAL (RESTRICTED TO ID ONLY) ONE (10:28)
[2025-09-04] MEDS ORDERED: PROPOFOL 20 ML ONE ×2 (10:49→10:55)
[2025-09-04] MEDS ORDERED: MIDAZOLAM HCL 2 MG/2 ML SINGLE DOSE VIAL ONE (10:49)
[2025-09-04] MEDS: BUPIVACAINE HCL/PF 0.5% (5 MG/ML) 30 ML VIAL IJ ONE (10:53)
[2025-09-04] MEDS: LIDOCAINE HCL 1%, 10 MG/ML (20ML VIAL) INF ONE (10:53)
[2025-09-04] MEDS ORDERED: ONDANSETRON 4 MG/2 ML VIAL IVPUSH PRN ×2 (11:15→11:42)
[2025-09-04] MEDS: HEPARIN NA (PORCINE) 5,000 UNITS/ML 1ML VIAL SQ SCH (13:49)
[2025-09-04] MEDS: hydrALAZINE HCL 50 MG TABLET (FP) PO SCH (13:49)
[2025-09-04] MEDS: PIPERACILLIN/TAZOB 3.375 GM 3.375 GM in DEXTROSE 5%-WATER - 50 ML IVPB SCH (17:06)
[2025-09-04] MEDS: LACTATED RINGERS SOLUTION 1,000 ML IV SCH (18:20)
[2025-09-04] MEDS: METOPROLOL TARTRATE 50 MG TABLET (FP) PO SCH (21:24)
[2025-09-05] MEDS: TAMSULOSIN HCL 0.4 MG CAP PO SCH (09:48)
[2025-09-05] MEDS: PANTOPRAZOLE 40 MG TABLET PO SCH (09:48)
[2025-09-05] MEDS: NIFEdipine E.R. 30 MG TABLET PO SCH (09:48)
[2025-09-05] MEDS: TORSEMIDE 20 MG TABLET (FP) PO SCH (09:48)
[2025-09-06] MEDS: CEFEPIME 2 GM in DEXTROSE 5%-WATER 100 ML IVPB SCH (12:21)
[2025-09-06 15:33] VITALS: BP 159/64; PULSE 68; RESP 18; TEMP 98.3
== END 2025-09-06 18:24 | disposition home health service (06) | DRG 629 ==
LOC: JER 15:09 → JERBED 15:47 → J8W 21:44 → OBSVTOIN 08-31 08:00
PROVIDERS: ADMIT Family Medicine; ATTEND Family Medicine
PROC: 0QBP3ZX Excision of Left Metatarsal, Percutaneous Approach, Diagnostic (ICD-10-PCS; principal; 2025-09-04 10:00)
PROC: 05HM33Z Insertion of Infusion Device into Right Internal Jugular Vein, Percutaneous Approach (ICD-10-PCS; 2025-09-06)
PROC: B543ZZA Ultrasonography of Right Jugular Veins, Guidance (ICD-10-PCS; 2025-09-06)
DX: E11.69 Type 2 diabetes mellitus with other specified complication (principal); M86.172 Other acute osteomyelitis, left ankle and foot; E11.621 Type 2 diabetes mellitus with foot ulcer; I12.9 Hypertensive chronic kidney disease with stage 1 through stage 4 chronic kidney disease, or unspecified chronic kidney disease; L97.529 Non-pressure chronic ulcer of other part of left foot with unspecified severity; N18.9 Chronic kidney disease, unspecified; E11.40 Type 2 diabetes mellitus with diabetic neuropathy, unspecified; E78.5 Hyperlipidemia, unspecified; E11.65 Type 2 diabetes mellitus with hyperglycemia; N40.0 Benign prostatic hyperplasia without lower urinary tract symptoms
CPT/HCPCS: 36415; 36558; 73610-TC-LT-FY; 73630-TC-LT; 73718-TC-LT; 80053; 82962; 83735; 84100; 85025; 85610; 85651; 85730; 86140; 87040; 87070; 87075; 87205; 88304-TC; 94760; 99285-25; G0378